=== PATIENT | female | born 1935 | race Caucasian/White ===

== ENCOUNTER → 2016-10-07 | Outpatient (CLI) | payer MEDICARE, BC | LOC: RAD 14:34 | PROVIDERS: ATTEND Family Medicine | DX: M17.11 Unilateral primary osteoarthritis, right knee (principal); M85.88 Other specified disorders of bone density and structure, other site; M11.261 Other chondrocalcinosis, right knee | CPT/HCPCS: 73562; 73590-TC ==

== ENCOUNTER 2016-12-12 09:11 | Outpatient (CLI) | payer MEDICARE, BC | END 2016-12-12 23:59 | disposition home or self-care (01) | LOC: CT 09:11 | DX: M48.02 Spinal stenosis, cervical region (principal) | CPT/HCPCS: 72125-TC ==